=== PATIENT | female | born 1945 | race Caucasian/White ===

== ENCOUNTER 2021-12-17 12:26 | Emergency (ER) | payer MEDICARE ==
[~2021-12-17] VITALS: Ht 170.2 cm; Wt 79.4 kg
[2021-12-17] MEDS ORDERED: SODIUM CHLORIDE FLUSH 10 ML SYR IV PRN (13:15)
[2021-12-17 13:24] LABS: BASOPHILS % 0.4 % (0.0-1.0); EOSINOPHILS # (AUTO) 0.2 (0.0-0.4); EOSINOPHILS % 1.9 % (0.0-6.0); HEMATOCRIT 44.2 % (34.2-44.1); HEMOGLOBIN 14.8 g/dL (12.0-16.0); LYMPHOCYTES # (AUTO) 1.4 (1.0-3.2); LYMPHOCYTES % 16.1 % (18.0-39.1); MEAN CORPUSCULAR HGB CONC 33.5 g/dL (31-35); MEAN CORPUSCULAR VOLUME 92.7 fL (81-99); MONOCYTES # (AUTO) 0.8 (0.2-0.8); MONOCYTES % 9.1 % (4.4-11.3); NEUTROPHILS # (AUTO) 6.2 (2.1-6.9); PLATELET COUNT 269 x10e3/uL (140-360); RED BLOOD COUNT 4.77 x10e6/uL (3.6-5.1); RED CELL DISTRIBUTION WIDTH 13.7 % (11.7-14.4)
[2021-12-17 13:38] LABS: INR 2.42; PROTHROMBIN TIME 28.1 seconds (11.9-14.5)
[2021-12-17 13:39] LABS: PARTIAL THROMBOPLASTIN TIME 54.6 seconds (23.8-35.5)
[2021-12-17 13:54] LABS: ALBUMIN 3.7 g/dL (3.5-5.0); ALBUMIN/GLOBULIN RATIO 0.9 (0.8-2.0); ANION GAP 17.2 mmol/L (8-16); CALCIUM 9.6 mg/dL (8.4-10.2); CREATININE, SERUM 1.16 mg/dL (0.57-1.11); POTASSIUM 3.2 mmol/L (3.5-5.1)
[2021-12-17] MEDS ORDERED: PHYTONADIONE 10 MG/ML AMP IV ONE (14:45)
[2021-12-17 15:37] LABS: AMPHETAMINES SCREEN,URINE NEGATIVE (NEGATIVE); BENZODIAZEPINES SCREEN,URINE NEGATIVE (NEGATIVE); PHENCYCLIDINE SCREEN,URINE NEGATIVE (NEGATIVE)
[2021-12-17 16:45] VITALS: BP 161/79
== END 2021-12-17 16:48 | disposition short-term general hospital (02) ==
LOC: ER 12:44
DX: S06.5X0A Traumatic subdural hemorrhage without loss of consciousness, initial encounter (principal); S80.02XA Contusion of left knee, initial encounter; S80.01XA Contusion of right knee, initial encounter; S50.01XA Contusion of right elbow, initial encounter; S00.211A Abrasion of right eyelid and periocular area, initial encounter; S00.212A Abrasion of left eyelid and periocular area, initial encounter; W18.49XA Other slipping, tripping and stumbling without falling, initial encounter; I10 Essential (primary) hypertension; Z79.01 Long term (current) use of anticoagulants; Z95.2 Presence of prosthetic heart valve; E03.9 Hypothyroidism, unspecified; Z85.3 Personal history of malignant neoplasm of breast; Z90.12 Acquired absence of left breast and nipple
CPT/HCPCS: 0223U; 36415; 70450; 70486; 71045; 80053; 80307; 84484; 85025; 85610; 85730; 93005; 94760; 99284; J3430

== ENCOUNTER 2023-05-12 09:20 | Emergency (ER) | payer MEDICARE ==
[~2023-05-12] VITALS: Ht 170.2 cm; Wt 80.3 kg
[2023-05-12 09:25] VITALS: O2SAT 100
== END 2023-05-12 10:25 | disposition home or self-care (01) ==
LOC: ER 09:26
DX: R21 Rash and other nonspecific skin eruption (principal); I10 Essential (primary) hypertension; K21.9 Gastro-esophageal reflux disease without esophagitis; Z85.3 Personal history of malignant neoplasm of breast
CPT/HCPCS: 99282

== ENCOUNTER 2025-01-09 23:33 | Emergency (ER) | payer MEDICARE ==
[~2025-01-09] VITALS: Ht 170.2 cm; Wt 79.4 kg
[2025-01-09 23:45] VITALS: PULSE 79; RESP 16; TEMP 98
[2025-01-10 01:48] VITALS: BP 146/72; PULSE 72; RESP 17; TEMP 98.2; O2SAT 97
== END 2025-01-10 01:35 | disposition home or self-care (01) ==
LOC: ER 01-10 00:03
DX: R51.9 Headache, unspecified (principal); S00.83XA Contusion of other part of head, initial encounter; M25.512 Pain in left shoulder; S80.01XA Contusion of right knee, initial encounter; W10.8XXA Fall (on) (from) other stairs and steps, initial encounter; Y92.89 Other specified places as the place of occurrence of the external cause; I10 Essential (primary) hypertension; I25.10 Atherosclerotic heart disease of native coronary artery without angina pectoris; K21.9 Gastro-esophageal reflux disease without esophagitis; Z79.01 Long term (current) use of anticoagulants; Z95.1 Presence of aortocoronary bypass graft; Z85.3 Personal history of malignant neoplasm of breast
CPT/HCPCS: 70450; 99283